=== PATIENT | female | born 2000 ===

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

== ENCOUNTER 2020-05-15 08:02 | Inpatient (IN) | payer MEDICAID ==
[2020-05-15] MEDS ORDERED: Lidocaine 1% 50 ML MDV INJECT PRN (08:09)
[2020-05-15] MEDS ORDERED: Sodium Chloride 0.9% 10 ML SDV IV PRN (08:09)
[2020-05-15] MEDS ORDERED: Water For Irrigation,Sterile 1,000 ML Container IRR PRN (08:09)
[2020-05-15] MEDS ORDERED: Terbutaline 1 MG/ML SDV SUBCUT PRN (08:09)
[2020-05-15] MEDS ORDERED: Tranexamic Acid 1,000 MG in Sodium Chloride 0.9% 100 ML IV PRN (08:09)
[2020-05-15] MEDS ORDERED: Methylergonovine 0.2 MG/1 ML Amp IM PRN (08:09)
[2020-05-15] MEDS ORDERED: Sodium Chloride 0.9% 10 ML Syringe FLUSH PRN (08:09)
[2020-05-15] MEDS ORDERED: Sodium Chloride 0.9% 2.5 ML Syringe FLUSH PRN (08:09)
[2020-05-15] MEDS ORDERED: Ondansetron 4 MG/2 ML SDV IVPUSH PRN (08:09)
[2020-05-15] MEDS ORDERED: Misoprostol 200 MCG Tab PO PRN (08:09)
[2020-05-15] MEDS ORDERED: Carboprost Tromethamine 250 MCG/1 ML Amp IM PRN (08:09)
[2020-05-15] MEDS ORDERED: Oxytocin/0.9 % Sodium Chloride 30 UNIT/500 ML BAG IV SCH ×2 (08:15)
[2020-05-15] MEDS ORDERED: hydrOXYzine Pamoate 25 MG Cap PO PRN (08:17)
[2020-05-15] MEDS: Lactated Ringers 1,000 ML IV SCH ×3 (08:50→23:00)
[2020-05-15] MEDS ORDERED: Ampicillin 2 GM in Sodium Chloride 0.9% 100 ML IV ONE (09:00)
--- NOTE | 2020-05-15 10:10 | PCM.LDHP ---
L&D History of Present Illness - General Date of Service: 05/15/20 Admit Problem/Dx: Patient Status Order with Admit Dx/Problem 05/15/20 08:09 Patient Status [ADT] Routine Admission Diagnosis/Problem Admission Diagnosis/Problem 05/15/20 10:05 Ellen is a 19 yo at 40+1 weeks gestation (ENRIQUETA 05/14/2020) that presents to L&D today for elective IOL. Patient seen in office 05/12/2020, RBAs of IOL including pitocin administration discussed in office, consents signed, verified vertex in office via TAUS and SVE. Reports adequate movement. Denies taiwo vaginal bleeding, LOF at this time. O pos, Ab screen neg, RI, GBS pos. COVID pos, asymptomatic, known exposure with onset of SHELTON, weak cough 02/2020. EFW via Le[place] 7-8 lbs. course otherwise unremarkable. NKDA. Medications: PNV. Patient has no other complaints or concerns at this time. 05/15/20 12:11 Source of Information: Patient History Limitations: Reports: No Limitations - History of Present Illness Improves with: Reports: None Worsens with: Reports: None Associated Symptoms: Reports: N - Related Data Allergies/Adverse Reactions: Allergies Allergy/AdvReac Type Severity Reaction Status Date / Time No Known Allergies Allergy Verified 05/15/20 10:09 Home Medications: Home Meds . 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 General: Reports: No Symptoms HEENT: Reports: No Symptoms Pulmonary: Reports: No Symptoms Cardiovascular: Reports: No Symptoms Gastrointestinal: Reports: No Symptoms Genitourinary: Reports: No Symptoms Musculoskeletal: Reports: No Symptoms Skin: Reports: No Symptoms Psychiatric: Reports: No Symptoms Neurological: Reports: No Symptoms Hematologic/Lymphatic: Reports: No Symptoms Immunologic: Reports: No Symptoms L&D Exam - Exam Exam: See Below - Vital Signs Vital Signs: VSS, afebrile. See flowsheet. - OB Specific Fundal Height In cm: 40 Contraction Duration (sec): 80-140 Contraction Frequency (min): 2-8 Contraction Intensity: Mild Movement: Active Heart Tones: Present Heart Tones per Min: 125 Heart Rate (FHR) Variability: Moderate (6-25 bmp) Presentation: Vertex (via SVE and Hector's) - Allan Score Allan Score Cervix Position: Posterior Allan Score Consistency: Soft Allan Score Effacement: >80% Allan Score Dilation: 1-2 cm - Exam General: Alert, Oriented HEENT: Conjunctiva Clear, Hearing Intact, Mucosa Moist & [place], PERRLA Neck: Supple, Trachea Midline Lungs: Clear to Auscultation, Normal Respiratory Effort Cardiovascular: Regular Rate, Regular Rhythm GI/Abdominal Exam: Normal Bowel Sounds, Soft, Non-Tender, No Organomegaly, No Distention Rectal Exam: Deferred Genitourinary: Normal external exam, Enlarged uterus (Gravid uterus, ) Back Exam: Normal Inspection, Full Range of Motion Extremities: Normal Inspection, Normal Range of Motion, Non-Tender, No Pedal Edema, Normal Capillary Refill Skin: Warm, Dry, Intact Neurological: Cranial Nerves Intact, Reflexes Equal Bilateral Psychiatric: Alert, Normal Affect, Normal Mood - Patient Data Lab Results Last 24 hrs: Laboratory Results - last 24 hr 05/15/20 05/15/20 Range/Units 08:42 08:42 WBC 7.96 (4.0-11.0) K/uL RBC 3.90 L (4.30-5.90) M/uL Hgb 10.2 L (12.0-16.0) g/dL Hct 31.8 L (36.0-46.0) % MCV 81.5 (80.0-98.0) fL MCH 26.2 L (27.0-32.0) pg MCHC 32.1 (31.0-37.0) g/dL RDW Std Deviation 40.4 (28.0-62.0) fl RDW Coeff of Hakeem 14 (11.0-15.0) % Plt Count 242 (150-400) K/uL MPV 11.40 (7.40-12.00) fL Nucleated RBC % 0.0 /100WBC Nucleated RBCs # 0 K/uL Blood Type O POSITIVE Antibody Screen NEGATIVE Result Diagrams: 05/15/20 08:42 - Problem List (1) Encounter for elective induction of labor SNOMED Code(s): 217539366 ICD Code: Z34.90 - ENCNTR FOR SUPRVSN OF NORMAL , UNSP, UNSP TRIMESTER Status: Acute Priority: High Current Visit: Yes (2) 40 weeks gestation of SNOMED Code(s): 31314485 ICD Code: Z3A.40 - 40 WEEKS GESTATION OF Status: Acute Priority: High Current Visit: Yes Problem List Initiated/Reviewed/Updated: Yes Orders Last 24hrs: Active Orders 24 hr Category Date Time Status Patient Status [ADT] Routine ADT 05/15/20 08:09 Active Communication Order [RC] ASDIRECTED Care 05/15/20 08:09 Active Communication Order [RC] ASDIRECTED Care 05/15/20 08:09 Active Heart Tones [RC] CONTINUOUS Care 05/15/20 08:09 Active Non Stress Test [RC] PER UNIT ROUTINE Care 05/15/20 08:09 Active May Shower [RC] ASDIRECTED Care 05/15/20 08:09 Active Notify Provider [RC] PRN Care 05/15/20 08:09 Active Notify Provider [RC] PRN Care 05/15/20 08:09 Active Oxygen Therapy [RC] ASDIRECTED Care 05/15/20 08:09 Active Peripheral IV Care [RC] . DIRECTED Care 05/15/20 08:09 Active Up ad Sarita [RC] ASDIRECTED Care 05/15/20 08:09 Active Vaginal Exam [RC] PRN Care 05/15/20 08:09 Active Vaginal Exam [RC] PRN Care 05/15/20 08:09 Active Vital Signs [RC] PER UNIT ROUTINE Care 05/15/20 08:09 Active Regular Diet [DIET] Diet 05/15/20 Breakfast Active CORONAVIRUS COVID-19 JOY [MOLEC] Urgent Lab 05/15/20 08:50 Received RPR (SYPHILIS SERO) W/ RFLX [REF] Routine Lab 05/15/20 08:42 Received Ampicillin 1 gm Med 05/15/20 13:00 Active Sodium Chloride 0.9% [Normal Saline] 50 ml IV Q4H Carboprost Tromethamine [Hemabate DS] Med 05/15/20 08:09 Active 250 mcg IM ASDIRECTED PRN Lactated Ringers [Ringers, Lactated] 1,000 ml Med 05/15/20 08:15 Active IV ASDIRECTED Lidocaine 1% [Xylocaine 1%] Med 05/15/20 08:09 Active 50 ml INJECT ONETIME PRN Methylergonovine [Methergine] Med 05/15/20 08:09 Active 0.2 mg IM ASDIRECTED PRN Nalbuphine [Nubain] Med 05/15/20 08:09 Active 10 mg IVPUSH Q1H PRN Ondansetron [Zofran] Med 05/15/20 08:09 Active 4 mg IVPUSH Q6H PRN Oxytocin/0.9 % Sodium Chloride [Oxytocin 30 Unit/500 ML Med 05/15/20 08:15 Active -NS] 30 unit in 500 ml IV TITRATE Oxytocin/0.9 % Sodium Chloride [Oxytocin 30 Unit/500 ML Med 05/15/20 08:15 Active -NS] 30 unit in 500 ml IV TITRATE Sodium Chloride 0.9% [Normal Saline] Med 05/15/20 08:09 Active 10 ml IV ASDIRECTED PRN Sodium Chloride 0.9% [Saline Flush] Med 05/15/20 08:09 Active 10 ml FLUSH ASDIRECTED PRN Sodium Chloride 0.9% [Saline Flush] Med 05/15/20 08:09 Active 2.5 ml FLUSH ASDIRECTED PRN Terbutaline [Brethine] Med 05/15/20 08:09 Active 0.25 mg SUBCUT ASDIRECTED PRN Tranexamic Acid [Cyklokapron] 1,000 mg Med 05/15/20 08:09 Active Sodium Chloride 0.9% [Normal Saline] 100 ml IV ONETIME Water For Irrigation,Sterile [Sterile Water for Med 05/15/20 08:09 Active Irrigation] 1,000 ml IRR ASDIRECTED PRN hydrOXYzine pamoate [Vistaril] Med 05/15/20 08:17 Active 50 mg PO BEDTIME PRN miSOPROStoL [Cytotec] Med 05/15/20 08:09 Active 200 mcg PO ONETIME PRN Scalp Electrode [WOMSER] Per Unit Routine Oth 05/15/20 08:09 Ordered Peripheral IV Insertion Adult [OM.PC] Routine Oth 05/15/20 08:09 Ordered Resuscitation Status Routine Resus Stat 05/15/20 08:09 Ordered Medication Orders Carboprost Tromethamine (Hemabate Ds) 250 mcg IM ASDIRECTED PRN PRN Reason: Post Hemorrhage Hydroxyzine Pamoate (Vistaril) 50 mg PO BEDTIME PRN PRN Reason: Sleep Oxytocin/Sodium Chloride (Oxytocin 30 Unit/500 Ml-Ns) 30 unit in 500 mls @ 999 mls/hr IV TITRATE ANN-MARIE Tranexamic Acid 1,000 mg/ (Sodium Chloride) 110 mls @ 660 mls/hr IV ONETIME PRN PRN Reason: Bleeding Oxytocin/Sodium Chloride (Oxytocin 30 Unit/500 Ml-Ns) 30 unit in 500 mls @ 2 mls/hr IV TITRATE ANN-MARIE; Protocol Ampicillin Sodium 1 gm/ Sodium (Chloride) 50 mls @ 100 mls/hr IV Q4H ANN-MARIE Lactated Ringer's (Ringers, Lactated) 1,000 mls @ 150 mls/hr IV ASDIRECTED ANN-MARIE Last Admin: 05/15/20 08:50 Dose: 150 mls/hr Documented by: HINDTIF Lidocaine HCl (Xylocaine 1%) 50 ml INJECT ONETIME PRN PRN Reason: Laceration repair Methylergonovine Maleate (Methergine) 0.2 mg IM ASDIRECTED PRN PRN Reason: Post Hemorrhage Misoprostol (Cytotec) 200 mcg PO ONETIME PRN PRN Reason: Post Hemorrhage Nalbuphine HCl (Nubain) 10 mg IVPUSH Q1H PRN PRN Reason: Pain (severe 7-10) Ondansetron HCl (Zofran) 4 mg IVPUSH Q6H PRN PRN Reason: Nausea/Vomiting Sodium Chloride (Saline Flush) 10 ml FLUSH ASDIRECTED PRN PRN Reason: Keep Vein Open Sodium Chloride (Saline Flush) 2.5 ml FLUSH ASDIRECTED PRN PRN Reason: Keep Vein Open Sodium Chloride (Normal Saline) 10 ml IV ASDIRECTED PRN PRN Reason: IV Use Sterile Water (Sterile Water For Irrigation) 1,000 ml IRR ASDIRECTED PRN PRN Reason: delivery Terbutaline Sulfate (Brethine) 0.25 mg SUBCUT ASDIRECTED PRN PRN Reason: Tacysystole Assessment/Plan Comment:: Admit for observation for elective IOL in anticipation of of term viable . FHR Cat II, occasional variable decelerations noted. Spontaneous irregular contractions noted. RBAs/SEs of pitocin IOL discussed, patient confirms she desires elective IOL, reassess cervical dilation per orders. C ontinuous hemodynamic and monitoring. Administer 1000 ml LR bolus per orders prior to pitocin initiation. May receive epidural if desired >/=[address] cm[address] new orders. Dr. Cortez notified and agreeable with POC.
[2020-05-15] MEDS: Ampicillin 1 GM in Sodium Chloride 0.9% 50 ML IV SCH ×3 (12:51→20:42)
[2020-05-15] MEDS: Nalbuphine 10 MG/1 ML Vial IVPUSH PRN ×2 (19:25→22:00)
[2020-05-15] MEDS ORDERED: Ropivacaine HCl/PF 100 ML ONE (23:58)
[2020-05-15] MEDS ORDERED: fentaNYL 100 MCG/2 ML SDV ONE (23:58)
[2020-05-16] MEDS: Lactated Ringers 1,000 ML IV SCH (00:16)
--- NOTE | 2020-05-16 00:17 | PCM.PREANE ---
Preanesthetic Assessment - Anesthesia/Transfusion/Family Hx Anesthesia History: No Prior Anesthesia Family History of Anesthesia Reaction: No Transfusion History: No Prior Transfusion(s) Intubation History: Unknown - Physical Assessment NPO Status Date: 05/16/20 NPO Status Time: 11:00 Height: 1.55 m Weight: 79.832 kg ASA Class: 2 - Lab Values: Laboratory Last Values WBC 7.96 K/uL (4.0-11.0) 05/15/20 08:42 RBC 3.90 M/uL (4.30-5.90) L 05/15/20 08:42 Hgb 10.2 g/dL (12.0-16.0) L 05/15/20 08:42 Hct 31.8 % (36.0-46.0) L 05/15/20 08:42 MCV 81.5 fL (80.0-98.0) 05/15/20 08:42 MCH 26.2 pg (27.0-32.0) L 05/15/20 08:42 MCHC 32.1 g/dL (31.0-37.0) 05/15/20 08:42 RDW Std Deviation 40.4 fl (28.0-62.0) 05/15/20 08:42 RDW Coeff of Hakeem 14 % (11.0-15.0) 05/15/20 08:42 Plt Count 242 K/uL (150-400) 05/15/20 08:42 MPV 11.40 fL (7.40-12.00) 05/15/20 08:42 Nucleated RBC % 0.0 /100WBC 05/15/20 08:42 Nucleated RBCs # 0 K/uL 05/15/20 08:42 SARS-CoV-2 RNA (JOY) POSITIVE (NEGATIVE) H 05/15/20 08:50 Blood Type O POSITIVE 05/15/20 08:42 Antibody Screen NEGATIVE 05/15/20 08:42 - Allergies Allergies/Adverse Reactions: Allergies Allergy/AdvReac Type Severity Reaction Status Date / Time No Known Allergies Allergy Verified 05/15/20 10:09 - Acknowledgements Anesthesia Type Planned: Epidural Pt an Appropriate Candidate for the Planned Anesthesia: Yes Alternatives and Risks of Anesthesia Discussed w Pt/Guardian: Yes Pt/Guardian Understands and Agrees with Anesthesia Plan: Yes PreAnesthesia Questionnaire - Past Health History Medical/Surgical History: Denies Medical/Surgical History HEENT History: Reports: Other (See Below) Other HEENT History: wears glasses RESPIRATORY PHYSICIAN History: Reports: Musculoskeletal History: Reports: Fracture, Other (See Below) Other Musculoskeletal History: fracture of metacarpal in right hand, not corrected due to , may have operation after delivery - Past Surgical History Head Surgeries/Procedures: Reports: None - SUBSTANCE USE Tobacco Use Status *Q: Never Tobacco User Second Hand Smoke Exposure: No Recreational Drug Use History: No - HOME MEDS Home Medications: Home Meds . [No Known Home Meds] 05/15/20 [History] - CURRENT (IN HOUSE) MEDS Current Meds: Current Medications Carboprost Tromethamine (Hemabate Ds) 250 mcg IM ASDIRECTED PRN PRN Reason: Post Hemorrhage Diphtheria/Tetanus/Acell Pertussis (Adacel) 0.5 ml IM .ONCE ONE Stop: 05/16/20 19:21 Hydroxyzine Pamoate (Vistaril) 50 mg PO BEDTIME PRN PRN Reason: Sleep Oxytocin/Sodium Chloride (Oxytocin 30 Unit/500 Ml-Ns) 30 unit in 500 mls @ 999 mls/hr IV TITRATE ANN-MARIE Tranexamic Acid 1,000 mg/ (Sodium Chloride) 110 mls @ 660 mls/hr IV ONETIME PRN PRN Reason: Bleeding Oxytocin/Sodium Chloride (Oxytocin 30 Unit/500 Ml-Ns) 30 unit in 500 mls @ 2 mls/hr IV TITRATE ANN-MARIE; Protocol Last Titration: 05/16/20 00:13 Dose: 2 munits/min, 2 mls/hr Documented by: Ampicillin Sodium 1 gm/ Sodium (Chloride) 50 mls @ 100 mls/hr IV Q4H ANN-MARIE Last Admin: 05/15/20 20:42 Dose: 100 mls/hr Documented by: Lactated Ringer's (Ringers, Lactated) 1,000 mls @ 999 mls/hr IV ASDIRECTED ANN-MARIE Last Admin: 05/15/20 23:00 Dose: 150 mls/hr Documented by: Influenza Virus Vaccine (Pharmacy To Dose - Influenza Vaccine) 1 each IM ONETIME ONE Stop: 05/16/20 19:21 Influenza Virus Vaccine (Fluzone Quad [id number] Syringe) 60 mcg IM .ONCE ONE Stop: 05/16/20 19:21 Lidocaine HCl (Xylocaine 1%) 50 ml INJECT ONETIME PRN PRN Reason: Laceration repair Methylergonovine Maleate (Methergine) 0.2 mg IM ASDIRECTED PRN PRN Reason: Post Hemorrhage Misoprostol (Cytotec) 200 mcg PO ONETIME PRN PRN Reason: Post Hemorrhage Ondansetron HCl (Zofran) 4 mg IVPUSH Q6H PRN PRN Reason: Nausea/Vomiting Sodium Chloride (Saline Flush) 10 ml FLUSH ASDIRECTED PRN PRN Reason: Keep Vein Open Sodium Chloride (Saline Flush) 2.5 ml FLUSH ASDIRECTED PRN PRN Reason: Keep Vein Open Sodium Chloride (Normal Saline) 10 ml IV ASDIRECTED PRN PRN Reason: IV Use Sterile Water (Sterile Water For Irrigation) 1,000 ml IRR ASDIRECTED PRN PRN Reason: delivery Terbutaline Sulfate (Brethine) 0.25 mg SUBCUT ASDIRECTED PRN PRN Reason: Tacysystole Discontinued Medications Fentanyl (Sublimaze) Confirm Administered Dose 100 mcg .ROUTE .STK-MED ONE Stop: 05/15/20 23:59 Ampicillin Sodium 2 gm/ Sodium (Chloride) 100 mls @ 200 mls/hr IV ONETIME ONE Stop: 05/15/20 09:29 Last Admin: 05/15/20 08:57 Dose: 200 mls/hr Documented by: Ropivacaine (Naropin 0.2%) Confirm Administered Dose 100 mls @ as directed .ROUTE .STK-MED ONE Stop: 05/15/20 23:59 Nalbuphine HCl (Nubain) 10 mg IVPUSH Q1H PRN PRN Reason: Pain (severe 7-10) Last Admin: 05/15/20 22:00 Dose: 10 mg Documented by:
--- NOTE | 2020-05-16 00:20 | PCM.PRNOTE ---
- Free Text/Narrative Note: Anes NOte Patient requests epidural for L&D. Sitting position, level L3-L4 midline approach. Sterile technique. Chloraprep scrub to lumbar area. Sterile fenestrated drape applied. Epidural space easily achieved single attempt with ease using CYRUS technique. CYRUS at 3 cm. Cath threaded 5 cm with ease. Cath secured at skin using sterile clear adhesive dressing. Test 2305 3 cc 1.5% lido with epi negative. 2308 Load 10 cc 0.2% ropivicaine with 1 mcg cc fentanyl in slow divided doses. 2311 Pumps started wtih 90 cc same solution. Rate is 8 cc hr with 6 cc q 20 min prn bolus. David well. 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
--- NOTE | 2020-05-16 01:58 | PCM.DEL ---
L & D Note - General Info Date of Service: 05/16/20 Mother's Due Date: 05/14/20 - Delivery Note Labor: Augmented by ARM, Induced by Oxytocin Delivery Outcome: Livebirth Delivery Method: Spontaneous Vaginal Delivery-Single Delivery Mode: Spontaneous Presentation: Right Occiput Anterior (JACQUES) (Compound left hand) Nuchal Cord: None Anesthesia Type: Epidural Amniotic Fluid Description: Clear Episiotomy Type: None Laceration: 3rd Degree (Repaired by Sandip Cortez MD) Suture type: Vicryl Suture size: 3-0 Placenta: Intact, Spontaneous Cord: 3 Vessels Estimated Blood Loss: 350 Resuscitation Needed: Yes : Suctioned, Bulb Syringe (CPAP), Stimulated, Warmed, [place] Used, Warmer Used Provider: Molly Iqbal Score 1 min: 6 Score 5 min: 8 Second Stage Interventions: Reports: Encouragement Given, Pushing Effectively, Pushing, Stirrups/Leg Supports Delivery Comments (Free Text/Narrative):: Ellen is a 19 yo S/P of term, viable NBM at 40+1 weeks gestation (ENRIQUETA 05/14/2020) following elective IOL. O pos, Ab screen neg, RI, GBS pos with adequate ampicillin prophylaxis in labor. COVID pos, asymptomatic, known exposure with onset of SHE[place]TON, weak cough 02/2020. Pain controlled moderately well with BLE epidural analgesia, pushing effectively with encouragement. head delivered JACQUES with compound left hand. Posterior arm released with ease, body followed easily with next push. NBM placed to maternal abdomen, warmed, dried, stimulated, bulb suctioned. Weak cry noted at 1 minute, umbilical cord clamped x2, cut by CNM. NBM brought to warmer for assessment. Placenta delivered ~4-5 minutes S/P NBM, intact, Hernandez, 3VC. 3rd degree perineal laceration noted. Dr. Cortez called to bedside. Uterus firm, U-1. Scant to small rubra lochia, no clots. Physician repaired 3rd degree laceration with 3.[address], approximated and hemostatic; rectal exam complete S/P repair, unremarkable. Apgars 6/8. weight 8 lb 15 oz. Patient resting comfortably in bed, VSS and afebrile. Induction Criteria - Allan Score Allan Score Dilation: 1-2 cm Allan Score Effacement: >80% Allan Score Consistency: Soft Allan Score Cervix Position: Posterior Lalan Score Presenting Part: Reports: Cephalic - Induction Gestational Age >/= 39 wks: Yes Estimated Pelvis: Reports: Adequate Reassuring Monitoring Strip: Yes Absence of Tachy Systole: Yes - Augmentation Estimated Pelvis: Reports: Adequate Reassuring Monitoring Strip: Yes Absence of Tachy Systole: Yes - General Info Date of Service: 05/16/20 Admission Dx/Problem (Free Text): Patient Status Order with Admit Dx/Problem 05/15/20 08:09 Patient Status [ADT] Routine Admission Diagnosis/Problem Admission Diagnosis/Problem 05/15/20 10:05 Ellen is a 19 yo at 40+1 weeks gestation (ENRIQUETA 05/14/2020) that presents to L&D today for elective IOL. Patient seen in office 05/12/2020, RBAs of IOL including pitocin administration discussed in office, consents signed, verified vertex in office via TAUS and SVE. Reports adequate movement. Denies taiwo vaginal bleeding, LOF at this time. O pos, Ab screen neg, RI, GBS pos. COVID pos, asymptomatic, known exposure with onset of SHELTON, weak cough 02/2020. EFW via [place] 7-8 lbs. course otherwise unremarkable. NKDA. Medications: PNV. Patient has no other complaints or concerns at this time. 05/15/20 12:11 Functional Status: Reports: Pain Controlled, Tolerating Diet - Review of Systems General: Reports: No Symptoms HEENT: Reports: No Symptoms Pulmonary: Reports: No Symptoms Cardiovascular: Reports: No Symptoms Gastrointestinal: Reports: No Symptoms Genitourinary: Reports: No Symptoms Musculoskeletal: Reports: No Symptoms Skin: Reports: No Symptoms Neurological: Reports: No Symptoms Psychiatric: Reports: No Symptoms - Patient Data Vitals - Most Recent: VSS, afebrile. See flowsheet. Weight - Most Recent: 176 lb I&O - Last 24 Hours: Intake & Output 05/15/20 05/15/20 05/16/20 14:59 22:59 06:59 Intake Total 50 2200 Balance 50 2200 Lab Results Last 24 Hours: Laboratory Results - last 24 hr 05/15/20 05/15/20 05/15/20 Range/Units 08:42 08:42 08:50 WBC 7.96 (4.0-11.0) K/uL RBC 3.90 L (4.30-5.90) M/uL Hgb 10.2 L (12.0-16.0) g/dL Hct 31.8 L (36.0-46.0) % MCV 81.5 (80.0-98.0) fL MCH 26.2 L (27.0-32.0) pg MCHC 32.1 (31.0-37.0) g/dL RDW Std Deviation 40.4 (28.0-62.0) fl RDW Coeff of Hakeem 14 (11.0-15.0) % Plt Count 242 (150-400) K/uL MPV 11.40 (7.40-12.00) fL Nucleated RBC % 0.0 /100WBC Nucleated RBCs # 0 K/uL SARS-CoV-2 RNA (JOY) POSITIVE H (NEGATIVE) Blood Type O POSITIVE Antibody Screen NEGATIVE Med Orders - Current: Current Medications Carboprost Tromethamine (Hemabate Ds) 250 mcg IM ASDIRECTED PRN PRN Reason: Post Hemorrhage Diphtheria/Tetanus/Acell Pertussis (Adacel) 0.5 ml IM .ONCE ONE Stop: 05/16/20 19:21 Hydroxyzine Pamoate (Vistaril) 50 mg PO BEDTIME PRN PRN Reason: Sleep Oxytocin/Sodium Chloride (Oxytocin 30 Unit/500 Ml-Ns) 30 unit in 500 mls @ 999 mls/hr IV TITRATE ANN-MARIE Tranexamic Acid 1,000 mg/ (Sodium Chloride) 110 mls @ 660 mls/hr IV ONETIME PRN PRN Reason: Bleeding Oxytocin/Sodium Chloride (Oxytocin 30 Unit/500 Ml-Ns) 30 unit in 500 mls @ 2 mls/hr IV TITRATE ANN-MARIE; Protocol Last Titration: 05/16/20 00:59 Dose: 500 munits/min, 500 mls/hr Documented by: Ampicillin Sodium 1 gm/ Sodium (Chloride) 50 mls @ 100 mls/hr IV Q4H ANN-MARIE Last Admin: 05/15/20 20:42 Dose: 100 mls/hr Documented by: Lactated Ringer's (Ringers, Lactated) 1,000 mls @ 999 mls/hr IV ASDIRECTED ANN-MARIE Last Admin: 05/16/20 00:16 Dose: 150 mls/hr Documented by: Influenza Virus Vaccine (Pharmacy To Dose - Influenza Vaccine) 1 each IM ONETIME ONE Stop: 05/16/20 19:21 Influenza Virus Vaccine (Fluzone Quad Syringe) 60 mcg IM .ONCE ONE Stop: 05/16/20 19:21 Lidocaine HCl (Xylocaine 1%) 50 ml INJECT ONETIME PRN PRN Reason: Laceration repair Methylergonovine Maleate (Methergine) 0.2 mg IM ASDIRECTED PRN PRN Reason: Post Hemorrhage Misoprostol (Cytotec) 200 mcg PO ONETIME PRN PRN Reason: Post Hemorrhage Ondansetron HCl (Zofran) 4 mg IVPUSH Q6H PRN PRN Reason: Nausea/Vomiting Sodium Chloride (Saline Flush) 10 ml FLUSH ASDIRECTED PRN PRN Reason: Keep Vein Open Sodium Chloride (Saline Flush) 2.5 ml FLUSH ASDIRECTED PRN PRN Reason: Keep Vein Open Sodium Chloride (Normal Saline) 10 ml IV ASDIRECTED PRN PRN Reason: IV Use Sterile Water (Sterile Water For Irrigation) 1,000 ml IRR ASDIRECTED PRN PRN Reason: delivery Terbutaline Sulfate (Brethine) 0.25 mg SUBCUT ASDIRECTED PRN PRN Reason: Tacysystole Discontinued Medications Fentanyl (Sublimaze) Confirm Administered Dose 100 mcg .ROUTE .STK-MED ONE Stop: 05/15/20 23:59 Ampicillin Sodium 2 gm/ Sodium (Chloride) 100 mls @ 200 mls/hr IV ONETIME ONE Stop: 05/15/20 09:29 Last Admin: 05/15/20 08:57 Dose: 200 mls/hr Documented by: Ropivacaine (Naropin 0.2%) Confirm Administered Dose 100 mls @ as directed .ROUTE .STK-MED ONE Stop: 05/15/20 23:59 Nalbuphine HCl (Nubain) 10 mg IVPUSH Q1H PRN PRN Reason: Pain (severe 7-10) Last Admin: 05/15/20 22:00 Dose: 10 mg Documented by: - Exam General: Alert, Oriented, Cooperative, No Acute Distress HEENT: Pupils Equal, Mucous Membr. Moist/[place] Neck: Supple Lungs: Clear to Auscultation, Normal Respiratory Effort Cardiovascular: Regular Rate, Regular Rhythm GI/Abdominal Exam: Normal Bowel Sounds, Soft, Non-Tender, No Organomegaly, No Distention (Female) Exam: Enlarged Uterus ( uterus, firm U-1), Vaginal Bleeding (Scant rubra lochia, no clots.), Vaginal Tears (3rd degree laceration, repaired by Diana Cortez MD, approximated, hemostatic.) Back Exam: Normal Inspection, Full Range of Motion Extremities: Normal Inspection, Normal Range of Motion, Non-Tender, No Pedal Edema, Normal Capillary Refill Skin: Warm, Dry, Intact Wound/Incisions: No Drainage (Edematous) Neurological: No New Focal Deficit (BLE epidural analgesia.) Psy/Mental Status: Alert, Normal Affect, Normal Mood - Problem List & Annotations (1) (spontaneous vaginal delivery) SNOMED Code(s): 939837150 Code(s): O80 - ENCOUNTER FOR FULL-TERM UNCOMPLICATED DELIVERY Status: Acute Priority: High Current Visit: Yes (2) Third degree perineal laceration SNOMED Code(s): 53655040, 045307649 Code(s): O70.20 - THIRD DEGREE PERINEAL LACERATION DURING DELIVERY, UNSP Status: Acute Priority: High Current Visit: Yes (3) Lactating mother SNOMED Code(s): 162015264, 328670301 Code(s): Z39.1 - ENCOUNTER FOR CARE AND EXAMINATION OF LACTATING MOTHER Status: Acute Priority: High Current Visit: Yes - Problem List Review Problem List Initiated/Reviewed/Updated: Yes - My Orders Last 24 Hours: My Active Orders 05/15/20 Breakfast Clear Liquid Diet [DIET] 05/15/20 08:09 Patient Status [ADT] Routine Communication Order [RC] ASDIRECTED Communication Order [RC] ASDIRECTED Heart Tones [RC] CONTINUOUS Non Stress Test [RC] PER UNIT ROUTINE May Shower [RC] ASDIRECTED Notify Provider [RC] PRN Notify Provider [RC] PRN Oxygen Therapy [RC] ASDIRECTED Peripheral IV Care [RC] . DIRECTED Up ad Sarita [RC] ASDIRECTED Vaginal Exam [RC] PRN Vaginal Exam [RC] PRN Vital Signs [RC] PER UNIT ROUTINE Carboprost Tromethamine [Hemabate DS] 250 mcg IM ASDIRECTED PRN Lidocaine 1% [Xylocaine 1%] 50 ml INJECT ONETIME PRN Methylergonovine [Methergine] 0.2 mg IM ASDIRECTED PRN Ondansetron [Zofran] 4 mg IVPUSH Q6H PRN Sodium Chloride 0.9% [Normal Saline] 10 ml IV ASDIRECTED PRN Sodium Chloride 0.9% [Saline Flush] 10 ml FLUSH ASDIRECTED PRN Sodium Chloride 0.9% [Saline Flush] 2.5 ml FLUSH ASDIRECTED PRN Terbutaline [Brethine] 0.25 mg SUBCUT ASDIRECTED PRN Tranexamic Acid [Cyklokapron] 1,000 mg Sodium Chloride 0.9% [Normal Saline] 100 ml IV ONETIME Water For Irrigation,Sterile [Sterile Water for Irrigation] 1,000 ml IRR ASDIRECTED PRN miSOPROStoL [Cytotec] 200 mcg PO ONETIME PRN Scalp Electrode [WOMSER] Per Unit Routine Peripheral IV Insertion Adult [OM.PC] Routine Resuscitation Status Routine 05/15/20 08:15 Lactated Ringers [Ringers, Lactated] 1,000 ml IV ASDIRECTED Oxytocin/0.9 % Sodium Chloride [Oxytocin 30 Unit/500 ML-NS] 30 unit in 500 ml IV TITRATE Oxytocin/0.9 % Sodium Chloride [Oxytocin 30 Unit/500 ML-NS] 30 unit in 500 ml IV TITRATE 05/15/20 08:17 hydrOXYzine pamoate [Vistaril] 50 mg PO BEDTIME PRN 05/15/20 08:42 RPR (SYPHILIS SERO) W/ RFLX [REF] Routine 05/15/20 Lunch Guest Tray [DIET] 05/15/20 11:36 Influenza Vaccine Charge [RC] .DISCHARGE Vaccines to be Administered [RC] PER UNIT ROUTINE 05/15/20 13:00 Ampicillin 1 gm Sodium Chloride 0.9% [Normal Saline] 50 ml IV Q4H 05/16/20 19:20 Diphth,Pertuss(Acell),Tet Vac [Adacel] 0.5 ml IM .ONCE ONE Flu Vacc [id number](6Mos Up)/Pf [Fluzone Quad Syringe] 60 mcg IM .ONCE ONE Pharmacy to Dose - InFluenza V [Pharmacy to Dose - InFluenza Vaccine] 1 each IM ONETIME ONE - Plan Plan:: Admit to inpatient unit S/P of term, viable NBM. D/C epidural analgesia now, may ambulate with assistance in 2-4 hours. If unable to void within 6 hours, plan to bladder scan and I/O cath and notify provider. May resume regular diet. support as needed and if desired. Hemoglobin 10.2 prior to delivery; plan to start 150 mg ferrous sulfate PO daily now. Stool softeners and laxatives as needed. See new orders. Dr. Cortez agreeable with POC.
[2020-05-16] MEDS ORDERED: Witch Hazel Medicated Pads 40/Jar TOP PRN (02:09)
[2020-05-16] MEDS ORDERED: Acetaminophen 500 MG Tab PO PRN ×2 (02:09)
[2020-05-16] MEDS ORDERED: Ibuprofen 400 MG Tab PO PRN (02:09)
[2020-05-16] MEDS ORDERED: Benzocaine/Menthol 20%-0.5% Spray 78 GM Cannister TOP PRN (02:09)
[2020-05-16] MEDS ORDERED: oxyCODONE 5 MG Tab PO PRN (02:09)
[2020-05-16] MEDS ORDERED: Bisacodyl 10 MG Supp RECTAL PRN (02:09)
[2020-05-16] MEDS ORDERED: Lanolin 100% Cream 7 GM Tube TOP PRN (02:09)
[2020-05-16] MEDS ORDERED: Oxytocin/0.9 % Sodium Chloride 30 UNIT/500 ML BAG ONE (02:27)
[2020-05-16] MEDS: Docusate Sodium 100 MG Cap PO SCH (09:58)
[2020-05-16] MEDS: Iron Polysaccharides Complex 150 MG Cap PO SCH (09:58)
[2020-05-16] MEDS: Ibuprofen 800 MG Tab PO PRN (09:58)
--- NOTE | 2020-05-16 13:48 | PCM.DCSUM1 ---
Discharge Summary - Hospital Course Free Text/Narrative:: Kristina is a 23 yo s/p repeat LTCS at 38+0 weeks d/t spontaneous contractions. Patient reports she is doing well today; denies C/O fever, chills, sweating, cough, SOB, or any other problems or concerns today. NBF is at bedside in bassinet, resting quietly, EBFing well and without issue. Patient independently ambulating, eating, hydrating. Calderon catheter urine clear, discontinued ~5:15 am today; has not yet voided. Moderate surgical incision pain controlled with PO analgesia. CBC pending. hx includes: ITP, anemia, hypothyroidism, obesity. - Discharge Data Discharge Disposition: Home, Self-Care 01 Condition: Good - Referral to Home Health Primary Care Physician: PCP None - Discharge Diagnosis/Problem(s) (1) (spontaneous vaginal delivery) SNOMED Code(s): 812235336 ICD Code: O80 - ENCOUNTER FOR FULL-TERM UNCOMPLICATED DELIVERY Status: Acute Priority: High Current Visit: Yes (2) Third degree perineal laceration SNOMED Code(s): 34088925, 654099053 ICD Code: O70.20 - THIRD DEGREE PERINEAL LACERATION DURING DELIVERY, UNSP Status: Acute Priority: High Current Visit: Yes (3) Lactating mother SNOMED Code(s): 638693719, 262112969 ICD Code: Z39.1 - ENCOUNTER FOR CARE AND EXAMINATION OF LACTATING MOTHER Status: Acute Priority: High Current Visit: Yes - Discharge Plan Home Medications: Home Meds . [No Known Home Meds] 05/15/20 [History] - Patient Data Vitals - Most Recent: Last Vital Signs Temp 99.1 F 05/16/20 08:15 Pulse 98 05/16/20 08:15 Resp 16 05/16/20 08:15 BP 125/69 05/16/20 08:15 Pulse Ox 96 05/16/20 08:15 Weight - Most Recent: 176 lb I&O - Last 24 hours: Intake & Output 05/15/20 05/16/20 05/16/20 22:59 06:59 14:59 Intake Total 50 2700 Balance 50 2700 Med Orders - Current: Current Medications Acetaminophen (Tylenol Extra Strength) 500 mg PO Q4H PRN PRN Reason: Pain Acetaminophen (Tylenol Extra Strength) 1,000 mg PO Q4H PRN PRN Reason: Pain Benzocaine/Menthol (Dermoplast Pain Relief 20%-0.5% [place]) 78 gm TOP ASDIRECTED PRN PRN Reason: Perineal Comfort Measure Last Admin: 05/16/20 03:20 Dose: 1 canister Documented by: Bisacodyl (Dulcolax) 10 mg RECTAL ONETIME PRN PRN Reason: Constipation Diphtheria/Tetanus/Acell Pertussis (Adacel) 0.5 ml IM .ONCE ONE Stop: 05/16/20 19:21 Docusate Sodium (Colace) 100 mg PO BID [facility] Last Admin: 05/16/20 09:58 Dose: 100 mg Documented by: Emollient Ointment (Lansinoh Hpa) 0 gm TOP ASDIRECTED PRN PRN Reason: Sore Nipples Last Admin: 05/16/20 03:21 Dose: 7 gram Documented by: Ibuprofen (Motrin) 400 mg PO Q4H PRN PRN Reason: Pain Ibuprofen (Motrin) 800 mg PO Q6H PRN PRN Reason: Pain Last Admin: 05/16/20 09:58 Dose: 800 mg Documented by: Influenza Virus Vaccine (Fluzone Quad [id number] Syringe) 60 mcg IM .ONCE ONE Stop: 05/16/20 19:21 Oxycodone HCl (Oxycodone) 5 mg PO Q2H PRN PRN Reason: Pain Polysaccharide Iron Complex (Ferrex 150) 150 mg PO DAILY [facility] Last Admin: 05/16/20 09:58 Dose: 150 mg Documented by: Grant Cast ([facility]) 1 pad TOP ASDIRECTED PRN PRN Reason: comfort care Last Admin: 05/16/20 03:21 Dose: 1 tub Documented by: Discontinued Medications Carboprost Tromethamine (Hemabate Ds) 250 mcg IM ASDIRECTED PRN PRN Reason: Post Hemorrhage Fentanyl (Sublimaze) Confirm Administered Dose 100 mcg .ROUTE .STK-MED ONE Stop: 05/15/20 23:59 Hydroxyzine Pamoate (Vistaril) 50 mg PO BEDTIME PRN PRN Reason: Sleep Oxytocin/Sodium Chloride (Oxytocin 30 Unit/500 Ml-Ns) 30 unit in 500 mls @ 999 mls/hr IV TITRATE [facility] Last Admin: 05/16/20 02:31 Dose: 500 mls/hr Documented by: Tranexamic Acid 1,000 mg/ (Sodium Chloride) 110 mls @ 660 mls/hr IV ONETIME PRN PRN Reason: Bleeding Oxytocin/Sodium Chloride (Oxytocin 30 Unit/500 Ml-Ns) 30 unit in 500 mls @ 2 mls/hr IV TITRATE ANN-MARIE; Protocol Last Titration: 05/16/20 00:59 Dose: 500 munits/min, 500 mls/hr Documented by: Ampicillin Sodium 2 gm/ Sodium (Chloride) 100 mls @ 200 mls/hr IV ONETIME ONE Stop: 05/15/20 09:29 Last Admin: 05/15/20 08:57 Dose: 200 mls/hr Documented by: Ampicillin Sodium 1 gm/ Sodium (Chloride) 50 mls @ 100 mls/hr IV Q4H [facility] Last Admin: 05/15/20 20:42 Dose: 100 mls/hr Documented by: Lactated Ringer's (Ringers, Lactated) 1,000 mls @ 999 mls/hr IV ASDIRECTED [facility] Last Admin: 05/16/20 00:16 Dose: 150 mls/hr Documented by: Ropivacaine (Naropin 0.2%) Confirm Administered Dose 100 mls @ as directed .ROUTE .STK-MED ONE Stop: 05/15/20 23:59 Oxytocin/Sodium Chloride (Oxytocin 30 Unit/500 Ml-Ns) Confirm Administered Dose 30 unit in 500 mls @ as directed .ROUTE .STK-MED ONE Stop: 05/16/20 02:28 Influenza Virus Vaccine (Pharmacy To Dose - Influenza Vaccine) 1 each IM ONETIME ONE Stop: 05/16/20 19:21 Lidocaine HCl (Xylocaine 1%) 50 ml INJECT ONETIME PRN PRN Reason: Laceration repair Methylergonovine Maleate (Methergine) 0.2 mg IM ASDIRECTED PRN PRN Reason: Post Hemorrhage Misoprostol (Cytotec) 200 mcg PO ONETIME PRN PRN Reason: Post Hemorrhage Nalbuphine HCl (Nubain) 10 mg IVPUSH Q1H PRN PRN Reason: Pain (severe 7-10) Last Admin: 05/15/20 22:00 Dose: 10 mg Documented by: Ondansetron HCl (Zofran) 4 mg IVPUSH Q6H PRN PRN Reason: Nausea/Vomiting Sodium Chloride (Saline Flush) 10 ml FLUSH ASDIRECTED PRN PRN Reason: Keep Vein Open Sodium Chloride (Saline Flush) 2.5 ml FLUSH ASDIRECTED PRN PRN Reason: Keep Vein Open Sodium Chloride (Normal Saline) 10 ml IV ASDIRECTED PRN PRN Reason: IV Use Sterile Water (Sterile Water For Irrigation) 1,000 ml IRR ASDIRECTED PRN PRN Reason: delivery Terbutaline Sulfate (Brethine) 0.25 mg SUBCUT ASDIRECTED PRN PRN Reason: Tacysystole
--- NOTE | 2020-05-16 13:55 | PCM.PNPP ---
- General Info Date of Service: 05/16/20 Admission Dx/Problem (Free Text): Patient Status Order with Admit Dx/Problem 05/15/20 08:09 Patient Status [ADT] Routine Admission Diagnosis/Problem Admission Diagnosis/Problem 05/15/20 10:05 Ellen is a 19 yo PPD0 S/P of term, viable NBM at 40+1 weeks gestation (ENRIQUETA 05/14/2020) following elective IOL. Patient reports she is doing well today; denies C/O fever, chills, sweating, cough, SOB, or any other problems or concerns today. NBM is resting quietly in arms, EBFing fairly with nipple allen and syringe supplementation at the breast. Patient independently ambulating, eating, hydrating, urinating. Mild to moderate perineal discomfort and intermittent uterine contractions controlled with ibuprofen and acetaminophen. Small to moderate vaginal bleeding. hx unremarkable. 05/15/20 12:11 Functional Status: Reports: Pain Controlled, Tolerating Diet, Ambulating, Urinating - Review of Systems General: Reports: No Symptoms HEENT: Reports: No Symptoms Pulmonary: Reports: No Symptoms Cardiovascular: Reports: No Symptoms Gastrointestinal: Reports: No Symptoms Genitourinary: Reports: No Symptoms Musculoskeletal: Reports: No Symptoms Skin: Reports: No Symptoms Neurological: Reports: No Symptoms Psychiatric: Reports: No Symptoms - General Info Date of Service: 05/16/20 - Patient Data Vital Signs - Most Recent: Last Vital Signs Temp 99.1 F 05/16/20 08:15 Pulse 98 05/16/20 08:15 Resp 16 05/16/20 08:15 BP 125/69 05/16/20 08:15 Pulse Ox 96 05/16/20 08:15 Weight - Most Recent: 176 lb I&O - Last 24 Hours: Intake & Output 05/15/20 05/16/20 05/16/20 22:59 06:59 14:59 Intake Total 50 2700 Balance 50 2700 Med Orders - Current: Current Medications Acetaminophen (Tylenol Extra Strength) 500 mg PO Q4H PRN PRN Reason: Pain Acetaminophen (Tylenol Extra Strength) 1,000 mg PO Q4H PRN PRN Reason: Pain Benzocaine/Menthol (Dermoplast Pain Relief 20%-0.5% [place]) 78 gm TOP ASDIRECTED PRN PRN Reason: Perineal Comfort Measure Last Admin: 05/16/20 03:20 Dose: 1 canister Documented by: Bisacodyl (Dulcolax) 10 mg RECTAL ONETIME PRN PRN Reason: Constipation Diphtheria/Tetanus/Acell Pertussis (Adacel) 0.5 ml IM .ONCE ONE Stop: 05/16/20 19:21 Docusate Sodium (Colace) 100 mg PO BID [facility] Last Admin: 05/16/20 09:58 Dose: 100 mg Documented by: Emollient Ointment (Lansinoh Hpa) 0 gm TOP ASDIRECTED PRN PRN Reason: Sore Nipples Last Admin: 05/16/20 03:21 Dose: 7 gram Documented by: Ibuprofen (Motrin) 400 mg PO Q4H PRN PRN Reason: Pain Ibuprofen (Motrin) 800 mg PO Q6H PRN PRN Reason: Pain Last Admin: 05/16/20 09:58 Dose: 800 mg Documented by: Influenza Virus Vaccine (Fluzone Quad [id number] Syringe) 60 mcg IM .ONCE ONE Stop: 05/16/20 19:21 Oxycodone HCl (Oxycodone) 5 mg PO Q2H PRN PRN Reason: Pain Polysaccharide Iron Complex (Ferrex 150) 150 mg PO DAILY [facility] Last Admin: 05/16/20 09:58 Dose: 150 mg Documented by: Grant Cast ([place]) 1 pad TOP ASDIRECTED PRN PRN Reason: comfort care Last Admin: 05/16/20 03:21 Dose: 1 tub Documented by: Discontinued Medications Carboprost Tromethamine (Hemabate Ds) 250 mcg IM ASDIRECTED PRN PRN Reason: Post Hemorrhage Fentanyl (Sublimaze) Confirm Administered Dose 100 mcg .ROUTE .STK-MED ONE Stop: 05/15/20 23:59 Hydroxyzine Pamoate (Vistaril) 50 mg PO BEDTIME PRN PRN Reason: Sleep Oxytocin/Sodium Chloride (Oxytocin 30 Unit/500 Ml-Ns) 30 unit in 500 mls @ 999 mls/hr IV TITRATE [facility] Last Admin: 05/16/20 02:31 Dose: 500 mls/hr Documented by: Tranexamic Acid 1,000 mg/ (Sodium Chloride) 110 mls @ 660 mls/hr IV ONETIME PRN PRN Reason: Bleeding Oxytocin/Sodium Chloride (Oxytocin 30 Unit/500 Ml-Ns) 30 unit in 500 mls @ 2 mls/hr IV TITRATE ANN-MARIE; Protocol Last Titration: 05/16/20 00:59 Dose: 500 munits/min, 500 mls/hr Documented by: Ampicillin Sodium 2 gm/ Sodium (Chloride) 100 mls @ 200 mls/hr IV ONETIME ONE Stop: 05/15/20 09:29 Last Admin: 05/15/20 08:57 Dose: 200 mls/hr Documented by: Ampicillin Sodium 1 gm/ Sodium (Chloride) 50 mls @ 100 mls/hr IV Q4H [facility] Last Admin: 05/15/20 20:42 Dose: 100 mls/hr Documented by: Lactated Ringer's (Ringers, Lactated) 1,000 mls @ 999 mls/hr IV ASDIRECTED [facility] Last Admin: 05/16/20 00:16 Dose: 150 mls/hr Documented by: Ropivacaine (Naropin 0.2%) Confirm Administered Dose 100 mls @ as directed .ROUTE .STK-MED ONE Stop: 05/15/20 23:59 Oxytocin/Sodium Chloride (Oxytocin 30 Unit/500 Ml-Ns) Confirm Administered Dose 30 unit in 500 mls @ as directed .ROUTE .STK-MED ONE Stop: 05/16/20 02:28 Influenza Virus Vaccine (Pharmacy To Dose - Influenza Vaccine) 1 each IM ONETIME ONE Stop: 05/16/20 19:21 Lidocaine HCl (Xylocaine 1%) 50 ml INJECT ONETIME PRN PRN Reason: Laceration repair Methylergonovine Maleate (Methergine) 0.2 mg IM ASDIRECTED PRN PRN Reason: Post Hemorrhage Misoprostol (Cytotec) 200 mcg PO ONETIME PRN PRN Reason: Post Hemorrhage Nalbuphine HCl (Nubain) 10 mg IVPUSH Q1H PRN PRN Reason: Pain (severe 7-10) Last Admin: 05/15/20 22:00 Dose: 10 mg Documented by: Ondansetron HCl (Zofran) 4 mg IVPUSH Q6H PRN PRN Reason: Nausea/Vomiting Sodium Chloride (Saline Flush) 10 ml FLUSH ASDIRECTED PRN PRN Reason: Keep Vein Open Sodium Chloride (Saline Flush) 2.5 ml FLUSH ASDIRECTED PRN PRN Reason: Keep Vein Open Sodium Chloride (Normal Saline) 10 ml IV ASDIRECTED PRN PRN Reason: IV Use Sterile Water (Sterile Water For Irrigation) 1,000 ml IRR ASDIRECTED PRN PRN Reason: delivery Terbutaline Sulfate (Brethine) 0.25 mg SUBCUT ASDIRECTED PRN PRN Reason: Tacysystole - Interaction Disposition, : Carlotta at Bedside Infant Interaction: Holding Infant Feeding: Attempted ; Nursed Fair/Poor, Difficulty with Latch-on, Other (see below) Other Feeding: Nipple allen, syringe supplementation Support Person: Significant Other - Recovery Exam Fundal Tone: Firms with Massage Fundal Level: 1 Fingerbreadths Below Umbilicus Fundal Placement: Midline Lochia Amount: Small Lochia Color: Rubra/Red Perineum Description: Edematous, Other (see below) Other Perinuem Description: 3rd degree laceration with repair Episiotomy/Laceration: Approximated Bladder Status: Voiding Urinary Elimination: Voided - Exam General: Alert, Oriented, Cooperative, No Acute Distress HEENT: Pupils Equal, Mucous Membr. Moist/[place] Neck: Supple Lungs: Clear to Auscultation, Normal Respiratory Effort Cardiovascular: Regular Rate, Regular Rhythm GI/Abdominal Exam: Normal Bowel Sounds, Soft, Non-Tender, No Organomegaly, No Distention Extremities: Normal Inspection, Normal Range of Motion, Non-Tender, No Pedal Edema, Normal Capillary Refill Skin: Warm, Dry, Intact Wound/Incisions: No Drainage Neurological: No New Focal Deficit Psy/Mental Status: Alert, Normal Affect, Normal Mood - Problem List & Annotations (1) (spontaneous vaginal delivery) SNOMED Code(s): 473602954 Code(s): O80 - ENCOUNTER FOR FULL-TERM UNCOMPLICATED DELIVERY Status: Acute Priority: High Current Visit: Yes (2) Third degree perineal laceration SNOMED Code(s): 29328415, 232476979 Code(s): O70.20 - THIRD DEGREE PERINEAL LACERATION DURING DELIVERY, UNSP Status: Acute Priority: High Current Visit: Yes (3) Lactating mother SNOMED Code(s): 205403964, 826418312 Code(s): Z39.1 - ENCOUNTER FOR CARE AND EXAMINATION OF LACTATING MOTHER Status: Acute Priority: High Current Visit: Yes - Problem List Review Problem List Initiated/Reviewed/Updated: Yes - My Orders Last 24 Hours: My Active Orders 05/16/20 02:09 Patient Status [ADT] Routine May Shower [RC] ASDIRECTED Up ad Sarita [RC] ASDIRECTED Vital Signs [RC] PER UNIT ROUTINE Acetaminophen [Tylenol Extra Strength] 1,000 mg PO Q4H PRN Acetaminophen [Tylenol Extra Strength] 500 mg PO Q4H PRN Benzocaine/Menthol [Dermoplast Pain Relief 20%-0.5% [place]] 78 gm TOP ASDIRECTED PRN Ibuprofen [Motrin] 400 mg PO Q4H PRN Ibuprofen [Motrin] 800 mg PO Q6H PRN Lanolin [Lansinoh HPA] See Dose Instructions TOP ASDIRECTED PRN bisacodyL [Dulcolax] 10 mg RECTAL ONETIME PRN oxyCODONE 5 mg PO Q2H PRN witch Stacey [Tucks] 1 pad TOP ASDIRECTED PRN Assess Lochia [WOMSER] Per Unit Routine Assess Uterine Involution [WOMSER] Per Unit Routine Peripheral IV Discontinue [OM.PC] Routine Resuscitation Status Routine 05/16/20 02:10 Ice Therapy [OM.PC] Per Unit Routine Perineal Care [OM.PC] Per Unit Routine Sitz Bath [OM.PC] Per Unit Routine 05/16/20 Breakfast Regular Diet [DIET] 05/16/20 09:00 Docusate Sodium [Colace] 100 mg PO BID Iron Polysaccharides Complex [Ferrex 150] 150 mg PO DAILY 05/16/20 19:20 Diphth,Pertuss(Acell),Tet Vac [Adacel] 0.5 ml IM .ONCE ONE Flu Vacc [id number](6Mos Up)/Pf [Fluzone Quad [id number] Syringe] 60 mcg IM .ONCE ONE 05/17/20 05:11 HEMOGLOBIN/HEMATOCRIT,HH [HEME] Timed - Plan Plan:: Continue with POC unit S/P of term, viable NBM. Continue regular diet. Ambulate 3-5 times daily. support as needed and if desired. Hemoglobin 10.2 prior to delivery; continue 150 mg ferrous sulfate PO daily now. Stool softeners and laxatives as needed. Plan to D/C home in am. Dr. Cortez agreeable with POC.
[2020-05-16] MEDS ORDERED: Diphtheria,Pertussis(Acell),Tetanus Vaccine 0.5 ML Syringe IM ONE (19:20)
[2020-05-16] MEDS ORDERED: FLU VACC QS2020-21(6MOS UP)/PF 60 MCG/0.5 ML SYRINGE IM ONE (19:20)
--- NOTE | 2020-05-17 06:37 | PCM48HPAN ---
Post Anesthesia Note - EVALUATION WITHIN 48HRS OF ANESTHETIC Vital Signs in Normal Range: Yes Patient Participated in Evaluation: Yes Respiratory Function Stable: Yes Airway Patent: Yes Cardiovascular Function Stable: Yes Hydration Status Stable: Yes Pain Control Satisfactory: Yes Nausea and Vomiting Control Satisfactory: Yes Mental Status Recovered: Yes Vital Signs: Last Vital Signs Temp 36.5 C 05/17/20 05:30 Pulse 91 05/17/20 05:30 Resp 17 05/17/20 05:30 BP 108/56 L 05/17/20 05:30 Pulse Ox 97 05/17/20 05:30
[2020-05-17] MEDS: Docusate Sodium 100 MG Cap PO SCH ×2 (07:10→08:18)
[2020-05-17] MEDS: Iron Polysaccharides Complex 150 MG Cap PO SCH (08:18)
[2020-05-17] MEDS: Ibuprofen 800 MG Tab PO PRN (08:23)
--- NOTE | 2020-05-17 11:24 | PCM.DCSUM1 ---
Discharge Summary - Hospital Course Free Text/Narrative:: Ellen is a 19 yo PPD1 S/P of term, viable NBM at 40+1 weeks gestation (ENRIQUETA 05/14/2020) following elective IOL. Patient reports she is doing well today; denies C/O fever, chills, sweating, cough, SOB, or any other problems or concerns today. NBM is resting quietly in bassinet. EBFing fairly with nipple allen and syringe supplementation at the breast. Patient independently ambulating, eating, hydrating, urinating. Mild to moderate perineal discomfort and intermittent uterine contractions controlled with ibuprofen and acetaminophen. Small vaginal bleeding, no clots. Expresses desire to be D/Cd home today. Diagnosis: Stroke: No - Discharge Data Discharge Date: 05/17/20 Discharge Disposition: Home, Self-Care 01 Condition: Good - Referral to Home Health Primary Care Physician: PCP None - Discharge Diagnosis/Problem(s) (1) (spontaneous vaginal delivery) SNOMED Code(s): 022481021 ICD Code: O80 - ENCOUNTER FOR FULL-TERM UNCOMPLICATED DELIVERY Status: Acute Priority: High Current Visit: Yes (2) Third degree perineal laceration SNOMED Code(s): 32439741, 124309010 ICD Code: O70.20 - THIRD DEGREE PERINEAL LACERATION DURING DELIVERY, UNSP Status: Acute Priority: High Current Visit: Yes (3) Lactating mother SNOMED Code(s): 114284129, 762936838 ICD Code: Z39.1 - ENCOUNTER FOR CARE AND EXAMINATION OF LACTATING MOTHER Status: Acute Priority: High Current Visit: Yes - Patient Instructions Diet: Usual Diet as Tolerated, Regular Diet as Tolerated, Drink 8-10+ Glasses/Day Activity: As Tolerated, No Strenuous Activities, Rest and Relax Today Driving: May Drive Today Showering/Bathing: May Shower Showering/Bathing, Other: May sitz bath for perineal comfort. Wound/Incision Care: Keep Operative Site/Wound Site Clean and Dry Notify Provider of: Fever, Increased Pain, Swelling and Redness, Drainage, Nausea and/or Vomiting - Discharge Plan *PRESCRIPTION DRUG MONITORING PROGRAM REVIEWED*: No *COPY OF PRESCRIPTION DRUG MONITORING REPORT IN PATIENT PEDRO: No Prescriptions/Med Rec: Docusate Sodium [Colace] 100 mg PO BID #60 cap Iron Polysaccharides Complex [Ferrex 150] 150 mg PO DAILY #30 cap Ibuprofen [Motrin] 800 mg PO Q8H PRN #90 tablet PRN Reason: Pain Home Medications: Home Meds Docusate Sodium [Colace] 100 mg PO BID #60 cap 05/17/20 [Rx] Ibuprofen [Motrin] 800 mg PO Q8H PRN #90 tablet 05/17/20 [Rx] Iron Polysaccharides Complex [Ferrex 150] 150 mg PO DAILY #30 cap 05/17/20 [Rx] Oxygen Therapy Mode: Room Air Patient Handouts: Baby Blues, Care After Vaginal Delivery - Discharge Summary/Plan Comment DC Time >30 min.: No Discharge Summary/Plan Comment: Hemodynamically stable, afebrile. Hemoglobin 8.8, continue (1) tablet 150 mg iron supplementation daily x 12 weeks, F/U as needed. Plan to discharge home today. Warning S/Ss, when to call for help discussed. Plan to RTO in 6 weeks for visit, or sooner if problems arise. - General Info Date of Service: 05/17/20 Admission Dx/Problem (Free Text: Patient Status Order with Admit Dx/Problem 05/15/20 08:09 Patient Status [ADT] Routine Admission Diagnosis/Problem Admission Diagnosis/Problem 05/15/20 10:05 Ellen is a 19 yo PPD0 S/P of term, viable NBM at 40+1 weeks gestation ([place]RIQUETA 05/14/2020) following elective IOL. Patient reports she is doing well today; denies C/O fever, chills, sweating, cough, SOB, or any other problems or concerns today. NBM is resting quietly in arms, EBFing fairly with nipple allen and syringe supplementation at the breast. Patient independently ambulating, eating, hydrating, urinating. Mild to moderate perineal discomfort and intermittent uterine contractions controlled with ibuprofen and acetaminophen. Small to moderate vaginal bleeding. hx unremarkable. 05/15/20 12:11 Functional Status: Reports: Pain Controlled, Tolerating Diet, Ambulating, Urinating - Review of Systems General: Reports: No Symptoms HEENT: Reports: No Symptoms Pulmonary: Reports: No Symptoms Cardiovascular: Reports: No Symptoms Gastrointestinal: Reports: No Symptoms Genitourinary: Reports: No Symptoms Musculoskeletal: Reports: No Symptoms Skin: Reports: No Symptoms Neurological: Reports: No Symptoms Psychiatric: Reports: No Symptoms - Patient Data Vitals - Most Recent: Last Vital Signs Temp 97.4 F 05/17/20 08:15 Pulse 87 05/17/20 08:15 Resp 17 05/17/20 08:15 BP 123/69 05/17/20 08:15 Pulse Ox 98 05/17/20 08:15 Weight - Most Recent: 176 lb Lab Results - Last 24 hrs: Laboratory Results - last 24 hr 05/17/20 Range/Units 06:15 Hgb 8.8 L (12.0-16.0) g/dL Hct 28.0 L (36.0-46.0) % Med Orders - Current: Current Medications Acetaminophen (Tylenol Extra Strength) 500 mg PO Q4H PRN PRN Reason: Pain Acetaminophen (Tylenol Extra Strength) 1,000 mg PO Q4H PRN PRN Reason: Pain Benzocaine/Menthol (Dermoplast Pain Relief 20%-0.5% [place]) 78 gm TOP ASDIRECTED PRN PRN Reason: Perineal Comfort Measure Last Admin: 05/16/20 03:20 Dose: 1 canister Documented by: Bisacodyl (Dulcolax) 10 mg RECTAL ONETIME PRN PRN Reason: Constipation Docusate Sodium (Colace) 100 mg PO BID [facility] Last Admin: 05/17/20 08:18 Dose: 100 mg Documented by: Emollient Ointment (Lansinoh Hpa) 0 gm TOP ASDIRECTED PRN PRN Reason: Sore Nipples Last Admin: 05/16/20 03:21 Dose: 7 gram Documented by: Ibuprofen (Motrin) 400 mg PO Q4H PRN PRN Reason: Pain Ibuprofen (Motrin) 800 mg PO Q6H PRN PRN Reason: Pain Last Admin: 05/17/20 08:23 Dose: 800 mg Documented by: Oxycodone HCl (Oxycodone) 5 mg PO Q2H PRN PRN Reason: Pain Polysaccharide Iron Complex (Ferrex 150) 150 mg PO DAILY [facility] Last Admin: 05/17/20 08:18 Dose: 150 mg Documented by: Grant Cast ([place]) 1 pad TOP ASDIRECTED PRN PRN Reason: comfort care Last Admin: 05/16/20 03:21 Dose: 1 tub Documented by: Discontinued Medications Carboprost Tromethamine (Hemabate Ds) 250 mcg IM ASDIRECTED PRN PRN Reason: Post Hemorrhage Diphtheria/Tetanus/Acell Pertussis (Adacel) 0.5 ml IM .ONCE ONE Stop: 05/16/20 19:21 Fentanyl (Sublimaze) Confirm Administered Dose 100 mcg .ROUTE .STK-MED ONE Stop: 05/15/20 23:59 Hydroxyzine Pamoate (Vistaril) 50 mg PO BEDTIME PRN PRN Reason: Sleep Oxytocin/Sodium Chloride (Oxytocin 30 Unit/500 Ml-Ns) 30 unit in 500 mls @ 999 mls/hr IV TITRATE [facility] Last Admin: 05/16/20 02:31 Dose: 500 mls/hr Documented by: Tranexamic Acid 1,000 mg/ (Sodium Chloride) 110 mls @ 660 mls/hr IV ONETIME PRN PRN Reason: Bleeding Oxytocin/Sodium Chloride (Oxytocin 30 Unit/500 Ml-Ns) 30 unit in 500 mls @ 2 mls/hr IV TITRATE [facility]; Protocol Last Titration: 05/16/20 00:59 Dose: 500 munits/min, 500 mls/hr Documented by: Ampicillin Sodium 2 gm/ Sodium (Chloride) 100 mls @ 200 mls/hr IV ONETIME ONE Stop: 05/15/20 09:29 Last Admin: 05/15/20 08:57 Dose: 200 mls/hr Documented by: Ampicillin Sodium 1 gm/ Sodium (Chloride) 50 mls @ 100 mls/hr IV Q4H [facility] Last Admin: 05/15/20 20:42 Dose: 100 mls/hr Documented by: Lactated Ringer's (Ringers, Lactated) 1,000 mls @ 999 mls/hr IV ASDIRECTED [facility] Last Admin: 05/16/20 00:16 Dose: 150 mls/hr Documented by: Ropivacaine (Naropin 0.2%) Confirm Administered Dose 100 mls @ as directed .ROUTE .STK-MED ONE Stop: 05/15/20 23:59 Oxytocin/Sodium Chloride (Oxytocin 30 Unit/500 Ml-Ns) Confirm Administered Dose 30 unit in 500 mls @ as directed .ROUTE .STK-MED ONE Stop: 05/16/20 02:28 Last Admin: 05/17/20 07:10 Dose: Not Given Documented by: Influenza Virus Vaccine (Pharmacy To Dose - Influenza Vaccine) 1 each IM ONETIME ONE Stop: 05/16/20 19:21 Influenza Virus Vaccine (Fluzone Quad [id number] Syringe) 60 mcg IM .ONCE ONE Stop: 05/16/20 19:21 Lidocaine HCl (Xylocaine 1%) 50 ml INJECT ONETIME PRN PRN Reason: Laceration repair Methylergonovine Maleate (Methergine) 0.2 mg IM ASDIRECTED PRN PRN Reason: Post Hemorrhage Misoprostol (Cytotec) 200 mcg PO ONETIME PRN PRN Reason: Post Hemorrhage Nalbuphine HCl (Nubain) 10 mg IVPUSH Q1H PRN PRN Reason: Pain (severe 7-10) Last Admin: 05/15/20 22:00 Dose: 10 mg Documented by: Ondansetron HCl (Zofran) 4 mg IVPUSH Q6H PRN PRN Reason: Nausea/Vomiting Sodium Chloride (Saline Flush) 10 ml FLUSH ASDIRECTED PRN PRN Reason: Keep Vein Open Sodium Chloride (Saline Flush) 2.5 ml FLUSH ASDIRECTED PRN PRN Reason: Keep Vein Open Sodium Chloride (Normal Saline) 10 ml IV ASDIRECTED PRN PRN Reason: IV Use Sterile Water (Sterile Water For Irrigation) 1,000 ml IRR ASDIRECTED PRN PRN Reason: delivery Terbutaline Sulfate (Brethine) 0.25 mg SUBCUT ASDIRECTED PRN PRN Reason: Tacysystole - Exam General: Reports: Alert, Oriented, Cooperative, No Acute Distress HEENT: Reports: Pupils Equal, Mucous Membr. Moist/[place] Neck: Reports: Supple Lungs: Reports: Clear to Auscultation, Normal Respiratory Effort Cardiovascular: Reports: Regular Rate, Regular Rhythm GI/Abdominal Exam: Normal Bowel Sounds, Soft, Non-Tender, No Organomegaly, No Distention (Female) Exam: Normal External Exam, Enlarged Uterus ( uterus, firm @U), Vaginal Bleeding (Scant rubra lochia, not clots.), Vaginal Tears (3rd degree perineal laceration, approximated and hemostatic.) Rectal (Female) Exam: Normal Exam, Deferred Back Exam: Reports: Normal Inspection, Full Range of Motion Extremities: Normal Inspection, Normal Range of Motion, Non-Tender, No Pedal Edema, Normal Capillary Refill Skin: Reports: Warm, Dry, Intact Wound/Incisions: Reports: No Drainage Neurological: Reports: No New Focal Deficit Psy/Mental Status: Reports: Alert, Normal Affect, Normal Mood
[2020-05-17] MEDS ORDERED: FLU VACC QS2020-21(6MOS UP)/PF 60 MCG/0.5 ML SYRINGE IM ONE (14:00)
== END 2020-05-17 15:00 | disposition home or self-care (01) | DRG 768 ==
LOC: MW.OBCHECK 08:02 → MW.OB 08:03 → MW.OBCHECK 08:08 → MW.OB 08:09 → OBSVTOIN 05-16 00:59 → MW.OB 05-16 04:47
PROVIDERS: ADMIT Obstetrics & Gynecology; ATTEND Obstetrics & Gynecology
PROC: 10E0XZZ Delivery of Products of Conception, External Approach (ICD-10-PCS; principal; 2020-05-16)
PROC: 0DQR0ZZ Repair Anal Sphincter, Open Approach (ICD-10-PCS; 2020-05-16)
PROC: 3E033VJ Introduction of Other Hormone into Peripheral Vein, Percutaneous Approach (ICD-10-PCS; 2020-05-16)
PROC: 10907ZC Drainage of Amniotic Fluid, Therapeutic from Products of Conception, Via Natural or Artificial Opening (ICD-10-PCS; 2020-05-16)
PROC: 3E0R3BZ Introduction of Anesthetic Agent into Spinal Canal, Percutaneous Approach (ICD-10-PCS; 2020-05-16)
PROC: 00HU33Z Insertion of Infusion Device into Spinal Canal, Percutaneous Approach (ICD-10-PCS; 2020-05-16)
DX: O48.0 Post-term pregnancy (principal); Z37.0 Single live birth; U07.1 COVID-19; O70.20 Third degree perineal laceration during delivery, unspecified; O98.52 Other viral diseases complicating childbirth; Z3A.40 40 weeks gestation of pregnancy
CPT/HCPCS: 01967; 36415; 51701; 59025; 59409; 85014; 85018; 85027; 86592; 86850; 86900; 86901; 90471; 90686; 90715; A9270-GY; G0008; J0290; J2300; J2590; J2795; J3010; J7120; U0002